=== PATIENT | female | born 1970 | race Caucasian/White ===

== ENCOUNTER 2018-10-17 18:39 | Emergency (ER) | payer OTHER ==
[~2018-10-17] VITALS: Ht 157.5 cm; Wt 66.6 kg
[~2018-10-17 18:39] MED LIST: HYDR-4011 PO; IBUP800T48 PO; NO HOME MEDICATIONS
[2018-10-17 18:46] VITALS: Ht 157.5 cm; Wt 66.6 kg
[2018-10-17] MEDS ORDERED: IBUPROFEN 800 MG TAB PO ONE (19:30)
[2018-10-17] MEDS ORDERED: HYDROCODONE/APAP (10/325) TAB PO ONE (19:30)
[2018-10-17 21:20] VITALS: BP 120/88; PULSE 100; RESP 18
== END 2018-10-17 21:25 | disposition home or self-care (01) ==
LOC: E/R 18:39
DX: M53.3 Sacrococcygeal disorders, not elsewhere classified (principal)
CPT/HCPCS: 81025; Z7502; Z7610; 99283